=== PATIENT | male | born 1980 | race Caucasian/White ===

== ENCOUNTER → 2016-10-12 | Outpatient (CLI) | payer OTHER | LOC: RAD 08:52 | DX: S93.411A Sprain of calcaneofibular ligament of right ankle, initial encounter (principal); S93.491A Sprain of other ligament of right ankle, initial encounter; X58.XXXA Exposure to other specified factors, initial encounter; Y93.89 Activity, other specified; Y92.89 Other specified places as the place of occurrence of the external cause; Y99.8 Other external cause status ==